=== PATIENT | male | born 1990 | race Caucasian/White ===

== ENCOUNTER 2021-04-28 03:27 | Emergency (ER) | payer MEDICAID, SELFPAY ==
[2021-04-28 03:35] VITALS: BP 128/88; BP 146/83; PULSE 87; PULSE 97; RESP 19; TEMP 36.4; O2SAT 100; BMI 21.5
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
--- NOTE | 2021-04-28 04:38 | PC.NURSE ---
PT AWAKE AND ALERT, [id number]. PT ON PHONE WITH GIRLFRIEND, TRYING TO ARRANGE FOR A RIDE HOME. MD TOLD PATIENT THAT IF HE CAN FIND A RIDE HOME, HE WILL BE DISCHARGED.
== END 2021-04-28 05:10 | disposition home or self-care (01) ==
PROVIDERS: Emergency Provider Student in an Organized Health Care Education/Training Program; PCP Nurse Practitioner
DX: F10.129 Alcohol abuse with intoxication, unspecified (principal); Y90.9 Presence of alcohol in blood, level not specified
CPT/HCPCS: 99283